=== PATIENT | female | born 1985 | race American Indian/Alaskan Native ===

== ENCOUNTER 2017-01-29 12:36 | Outpatient (CLI) | payer MEDICAID ==
[2017-01-29] MEDS ORDERED: LACTATED RINGERS 500 ML IV ONE (12:53)
[2017-01-29] MEDS ORDERED: BICITRA PO ONE (13:25)
[2017-01-29 14:28] VITALS: BP 121/71
== END 2017-01-29 15:04 | disposition home or self-care (01) ==
LOC: TRG 12:36
PROVIDERS: ATTEND Obstetrics & Gynecology
DX: O47.03 False labor before 37 completed weeks of gestation, third trimester (principal); O26.893 Other specified pregnancy related conditions, third trimester; R07.9 Chest pain, unspecified; Z3A.30 30 weeks gestation of pregnancy
CPT/HCPCS: 59025; 93005; 93010

== ENCOUNTER 2017-09-18 19:19 | Emergency (ER) | payer MEDICAID ==
[2017-09-18 19:35] VITALS: BP 145/89
[2017-09-18] MEDS ORDERED: TYLENOL PO ONE (19:38)
--- NOTE | 2017-09-18 20:30 | Emergency Department Report ---
Minor Respiratory - HPI Chief Complaint: Fever Stated Complaint: FEVER CHILLS/HEADACHE Time Seen by Provider: 09/18/17 20:14 Duration: 2 Days Severity: moderate Minor Respiratory: Yes Rhinorrhea, Yes Sore Throat, Yes Able to Tolerate Fluids , Yes Cough (nonproductive), Yes Sick Contacts (patient's son is sick as well), Yes Fever, No Ear Pain, No Hemoptysis, No Chest Pain, No Shortness of Breath Other History: Patient also complaining of body aches. Patient denies any nausea vomiting or diarrhea or neck stiffness ED Review of Systems ROS: Stated complaint: FEVER CHILLS/HEADACHE Other details as noted in HPI Comment: All other systems reviewed and negative ED Past Medical Hx - Past Medical History Hx Hypertension: No Hx Diabetes: No Hx Deep Vein Thrombosis: No Hx Renal Disease: No Hx Sickle Cell Disease: No Hx Seizures: No Hx Asthma: No Hx HIV: No - Surgical History Past Surgical History?: No - Social History Smoking Status: Never Smoker - Medications Home Medications: Home Medications Medication Instructions Recorded Confirmed Last Taken Type ALBUTEROL Inhaler [ProAir HFA 2 puff IH QID PRN #1 inhalation 09/18/17 Unknown Rx Inhaler] Fluticasone [Flonase] 1 spray NS QDAY #1 bottle 09/18/17 Unknown Rx HYDROcodone/APAP 5-325 [[place] 1 each PO Q6HR PRN #15 tablet 09/18/17 Unknown Rx 5/325] predniSONE [Deltasone] 20 mg PO QDAY 5 Days tab 09/18/17 Unknown Rx Minor Respiratory Exam - Exam General: Vital signs noted. No distress. Alert and acting appropriately. HEENT: Yes Moist Mucous Membranes, No Pharyngeal Erythema, No Pharyngeal Exudates, No Rhinorrhea, No Conjuctival Injection, No Frontal Tenderness, No Maxillary Tenderness Ear: Neither TM Bulge, Neither TM Erythema, Neither EAC Pain, Neither EAC Discharge Neck: Yes Supple, No Adenopathy Lungs: Yes Good Air Exchange, No Wheezes, No Ronchi, No Stridor, No Cough, No Labored Respirations, No Retractions, No Use of Accessory Muscles, No Other Abnormal Lung Sounds Heart: Yes Regular, No Murmur Abdomen: Yes Normal Bowel Sounds, No Tenderness, No Peritoneal Signs Skin: No Rash, No Edema Neurologic: Alert and oriented, no deficits. Musculoskeletal: Unremarkable. ED Course Vital Signs 09/18/17 19:33 Temperature 103 F H Pulse Rate 127 H Respiratory 18 Rate Blood Pressure 145/89 O2 Sat by Pulse 98 Oximetry ED Medical Decision Making - Medical Decision Making Patient with flulike symptoms. Patient obese started on meds for symptomatic relief. Patient's lungs were clear to auscultation is 98% on room air. Not believe the patient has pneumonia at this time. The patient be discharged home Critical care attestation.: If time is entered above; I have spent that time in minutes in the direct care of this critically ill patient, excluding procedure time. ED Disposition Clinical Impression: Influenza Disposition: DC-01 TO HOME OR SELFCARE Is pt being admited?: No Does the pt Need Aspirin: No Condition: Fair Instructions: Influenza (ED) Prescriptions: ALBUTEROL Inhaler [ProAir HFA Inhaler] 2 puff IH QID PRN #1 inhalation PRN Reason: Shortness Of Breath Fluticasone [Flonase] 1 spray NS QDAY #1 bottle HYDROcodone/APAP 5-325 [[place] 5/325] 1 each PO Q6HR PRN #15 tablet PRN Reason: Pain predniSONE [Deltasone] 20 mg PO QDAY 5 Days tab Referrals: JOY SPENCE MD [Primary Care Provider] - 3-5 Days
== END 2017-09-18 20:45 | disposition home or self-care (01) ==
LOC: ED 19:19
DX: J11.1 Influenza due to unidentified influenza virus with other respiratory manifestations (principal)
CPT/HCPCS: 99282